=== PATIENT | female | born 1950 | race Native Hawaiian/Other Pacific Islander ===

== ENCOUNTER 2017-04-04 08:23 | Outpatient (CLI) | payer OTHER | END 2017-04-04 19:01 | disposition home or self-care (01) | LOC: MAMMO 08:23 | DX: Z12.31 Encounter for screening mammogram for malignant neoplasm of breast (principal) ==

== ENCOUNTER 2017-11-08 11:40 | Day surgery (SDC) | payer OTHER | END 2017-11-08 15:37 | disposition home or self-care (01) | LOC: OR 11:40 | PROC: 0DB68ZZ Excision of Stomach, Via Natural or Artificial Opening Endoscopic (ICD-10-PCS; principal; 2017-11-08) | PROC: 0DB88ZZ Excision of Small Intestine, Via Natural or Artificial Opening Endoscopic (ICD-10-PCS; 2017-11-08) | PROC: 0D758ZZ Dilation of Esophagus, Via Natural or Artificial Opening Endoscopic (ICD-10-PCS; 2017-11-08) | DX: K31.84 Gastroparesis (principal); K21.0 Gastro-esophageal reflux disease with esophagitis; K22.4 Dyskinesia of esophagus; K22.2 Esophageal obstruction; K29.50 Unspecified chronic gastritis without bleeding; R13.19 Other dysphagia; R10.13 Epigastric pain; R11.0 Nausea | CPT/HCPCS: J2704 ==

== ENCOUNTER 2018-04-10 15:21 | Outpatient (CLI) | payer OTHER | END 2018-04-10 20:58 | disposition home or self-care (01) | LOC: MAMMO 15:21 | DX: Z12.31 Encounter for screening mammogram for malignant neoplasm of breast (principal) ==

== ENCOUNTER 2019-03-15 14:41 | Outpatient (CLI) | payer OTHER ==
[2019-03-15 15:27] LABS: PLATELET COUNT 159 K/uL (152-353)
[2019-03-15 15:49] LABS: POTASSIUM 3.8 mmol/L (3.6-5.2)
== END 2019-03-15 22:37 | disposition home or self-care (01) ==
LOC: RAD 14:41
PROVIDERS: Surgery Vascular Surgery
DX: Z01.810 Encounter for preprocedural cardiovascular examination (principal); Z01.811 Encounter for preprocedural respiratory examination; Z01.812 Encounter for preprocedural laboratory examination; I65.21 Occlusion and stenosis of right carotid artery
CPT/HCPCS: 36415; 80048; 85027; 93005

== ENCOUNTER 2019-03-19 08:19 | Outpatient (CLI) | payer OTHER | END 2019-03-19 20:31 | disposition home or self-care (01) | LOC: CT 08:19 | DX: R47.81 Slurred speech (principal); R51 Headache | CPT/HCPCS: Q9963 ==

== ENCOUNTER 2019-04-24 14:58 | Outpatient (CLI) | payer OTHER | END 2019-04-24 21:44 | disposition home or self-care (01) | LOC: MAMMO 14:58 | DX: Z12.31 Encounter for screening mammogram for malignant neoplasm of breast (principal) ==

== ENCOUNTER 2019-07-25 09:46 | Outpatient (CLI) | payer OTHER | END 2019-07-25 22:44 | disposition home or self-care (01) | LOC: MRI 09:46 | DX: H53.8 Other visual disturbances (principal); R42 Dizziness and giddiness; R20.2 Paresthesia of skin; I25.10 Atherosclerotic heart disease of native coronary artery without angina pectoris; I77.89 Other specified disorders of arteries and arterioles; I48.0 Paroxysmal atrial fibrillation | CPT/HCPCS: 36415; 82565; 84520; A9576 ==

== ENCOUNTER 2019-08-05 12:40 | Outpatient (CLI) | payer OTHER | END 2019-08-05 20:50 | disposition home or self-care (01) | LOC: CT 12:40 | DX: I63.532 Cerebral infarction due to unspecified occlusion or stenosis of left posterior cerebral artery (principal) | CPT/HCPCS: 36415; 82565; 84520; Q9963 ==

== ENCOUNTER 2020-04-28 11:20 | Outpatient (CLI) | payer OTHER | END 2020-04-28 21:58 | disposition home or self-care (01) | LOC: MAMMO 11:20 | PROVIDERS: ATTEND Physician Assistant | DX: Z12.31 Encounter for screening mammogram for malignant neoplasm of breast (principal) ==

== ENCOUNTER 2021-05-20 12:22 | Outpatient (CLI) | payer OTHER | END 2021-05-20 19:15 | disposition home or self-care (01) | LOC: US 12:22 | PROVIDERS: ATTEND Registered Nurse | DX: M79.662 Pain in left lower leg (principal) ==

== ENCOUNTER 2021-05-28 13:42 | Outpatient (CLI) | payer OTHER | END 2021-05-28 20:43 | disposition home or self-care (01) | LOC: MAMMO 13:42 | PROVIDERS: ATTEND Physician Assistant | DX: Z12.31 Encounter for screening mammogram for malignant neoplasm of breast (principal) ==

== ENCOUNTER 2021-07-01 13:54 | Outpatient (CLI) | payer OTHER | END 2021-07-01 19:15 | disposition home or self-care (01) | LOC: RAD 13:54 | PROVIDERS: ATTEND Family Medicine | DX: M79.662 Pain in left lower leg (principal) ==

== ENCOUNTER 2022-05-30 11:29 | Outpatient (CLI) | payer OTHER | END 2022-05-30 19:04 | disposition home or self-care (01) | LOC: MAMMO 11:29 | PROVIDERS: ATTEND Physician Assistant | DX: Z12.31 Encounter for screening mammogram for malignant neoplasm of breast (principal) ==